=== PATIENT | male | born 1975 | race Caucasian/White ===

== ENCOUNTER 2020-11-18 17:03 | Emergency (ER) | payer MEDICAID, OTHER ==
[~2020-11-18] VITALS: Ht 177.8 cm; Wt 99.8 kg
[2020-11-18 17:37] VITALS: BP 130/60
== END 2020-11-19 00:39 | disposition home or self-care (01) ==
LOC: EDBD 17:03 → ER 17:06
DX: R55 Syncope and collapse (principal); F17.210 Nicotine dependence, cigarettes, uncomplicated
CPT/HCPCS: 93005